=== PATIENT | male | born 1945 | race Caucasian/White ===

== ENCOUNTER 2017-08-18 08:52 | Outpatient (CLI) | payer MEDICARE ==
[2017-08-18] MEDS ORDERED: Iopamidol 370 76% 100 ML VIAL ONE (13:47)
--- NOTE | 2017-08-18 14:00 | CT ---
CT ABDOMEN AND PELVIS WITH IV CONTRAST: Multiple axial tomograms were obtained through the abdomen and pelvis with IV enhancement. Oral cont rast was also administered. INDICATION: Abdominal pain. Left flank pain. FINDINGS: Lung bases are clear. There are numerous low-attenuation lesions in the liver. The largest of these is located near the po rta hepatis measuring up to 3.2 cm. These lesions also show CT attenuation values suggesting hepatic cysts. The liver, spleen, and pancreas are otherwise unremarkable. Stomach and duodenum are unrema rkable. Adrenal glands and kidneys unremarkable. No hydronephrosis. No urinary tract calculus identified. Small bowel loops are normal caliber. The appendix shows some partial contrast opacification and gas pockets. There is mildly prominent proximally but is normal caliber distally. O inflammation or ev idence of appendicitis. There is stool throughout the colon. Findings may indicate constipation which would be consistent wi th the history. There is diverticulosis of the left colon without CT evidence of diverticulitis. Th e urinary bladder appears unremarkable. The prostate shows calcification without significant enlarge ment. Aorta shows atherosclerotic calcification, but normal caliber. The peripherally calcified aor tic lumen appears to separate from the peripheral wall in the mid abdominal aorta. This suggests a f ocal dissection. This is a localized dissection with no evidence of extension to the bifurcation or either iliac artery. IMPRESSION: 1. Atherosclerotic changes in the abdominal aorta. There appears to be separation of the lumen from the peripheral wall and lower abdominal aorta suggesting a localized dissection. 2. Multiple hepatic cysts. 3. There is a large amount of stool throughout the colon suggesting constipation. Diverticulosis wi thout CT evidence of diverticulitis. POS: [facility]
== END 2017-08-18 08:53 | disposition home or self-care (01) ==
LOC: CT 08:52
PROVIDERS: ATTEND Obstetrics & Gynecology
DX: R10.9 Unspecified abdominal pain (principal); K76.89 Other specified diseases of liver; R19.5 Other fecal abnormalities; K57.30 Diverticulosis of large intestine without perforation or abscess without bleeding
CPT/HCPCS: 74177; 82565

== ENCOUNTER 2018-06-26 09:14 | Outpatient (CLI) | payer MEDICARE ==
--- NOTE | 2018-06-26 11:51 | CT ---
CT OF ABDOMEN AND PELVIS PERFORMED WITHOUT CONTRAST ENHANCEMENT: HISTORY: Abdominal pain and cramping for the past few weeks. History of an inguinal hernia repair. COMPARISON: 08/18/2017 study. FINDINGS: The lung bases re clear of infiltrates. There is a calcified granuloma in the right base. Hypodensities within the liver appear stable and although some are too small to characterize they are most likely all cysts. The spleen, pancreas, and gallbladder regions are unremarkable. Right and left adrenal glands and right and left kidneys are normal in size. There is no significant periaortic or mesenteric lymphadenopathy. Chronic-appearing intimal dissection of the aorta is agai n noted. Colonic diverticulosis is seen. A moderate amount of stool was also noted within the colon . CT OF PELVIS PERFORMED WITHOUT CONTRAST ENHANCEMENT: Prostate calcifications are present. No adenopathy or mass. The appendix region appears unremarkabl e. IMPRESSION: 1. Diffuse colonic diverticulosis. 2. Hepatic cyst. 3. No acute findings of the abdomen or pelvis. POS: [facility]
== END 2018-06-26 09:15 | disposition home or self-care (01) ==
LOC: BICCT 09:14
PROVIDERS: ATTEND Obstetrics & Gynecology
DX: R10.2 Pelvic and perineal pain (principal); K57.30 Diverticulosis of large intestine without perforation or abscess without bleeding; K76.89 Other specified diseases of liver
CPT/HCPCS: 74176

== ENCOUNTER 2021-03-12 07:53 | Outpatient (CLI) | payer MEDICARE ==
[2021-03-12] MEDS ORDERED: ADENOSINE 60 MG/20 ML VIAL ONE (11:24)
== END 2021-03-12 07:54 | disposition home or self-care (01) ==
LOC: NM 07:53
PROVIDERS: ATTEND Family Medicine
DX: R07.9 Chest pain, unspecified (principal); I08.2 Rheumatic disorders of both aortic and tricuspid valves
CPT/HCPCS: 78452; 93017; 93306; A9500; J0153

== ENCOUNTER 2021-10-01 06:54 | Outpatient (CLI) | payer MEDICARE | END 2021-10-01 06:55 | disposition home or self-care (01) | LOC: BICULT 06:54 | PROVIDERS: ATTEND Family Medicine | DX: I71.4 Abdominal aortic aneurysm, without rupture (principal); I70.0 Atherosclerosis of aorta | CPT/HCPCS: 76775 ==

== ENCOUNTER 2023-01-23 15:37 | Outpatient (CLI) | payer MEDICARE | END 2023-01-23 15:38 | disposition home or self-care (01) | LOC: SCSRAD 15:37 | PROVIDERS: ATTEND Family Medicine | DX: M25.531 Pain in right wrist (principal); M19.031 Primary osteoarthritis, right wrist ==

== ENCOUNTER 2023-08-16 09:46 | Outpatient (CLI) | payer MEDICARE | END 2023-08-16 09:47 | disposition home or self-care (01) | LOC: ULT 09:46 | PROVIDERS: ATTEND Family Medicine | DX: I71.40 Abdominal aortic aneurysm, without rupture, unspecified (principal) | CPT/HCPCS: 76775 ==

== ENCOUNTER 2023-08-25 08:14 | Outpatient (CLI) | payer MEDICARE | END 2023-08-25 08:15 | disposition home or self-care (01) | LOC: BICCT 08:14 | PROVIDERS: ATTEND Family Medicine | DX: I71.20 Thoracic aortic aneurysm, without rupture, unspecified (principal); K57.30 Diverticulosis of large intestine without perforation or abscess without bleeding; K76.89 Other specified diseases of liver; I77.1 Stricture of artery | CPT/HCPCS: 71275; 82565 ==